=== PATIENT | male | born 1945 | race Caucasian/White ===

== ENCOUNTER 2016-11-08 09:29 | Outpatient (CLI) | payer MEDICARE, OTHER | END 2016-11-08 09:30 | disposition home or self-care (01) | DX: E78.2 Mixed hyperlipidemia (principal); C61 Malignant neoplasm of prostate; I10 Essential (primary) hypertension; D64.9 Anemia, unspecified ==

== ENCOUNTER 2017-10-29 12:58 | Outpatient (CLI) | payer MEDICARE, OTHER ==
--- NOTE | 2017-10-29 17:27 | MRI Report ---
EXAM: MRI LUMBAR SPINE WITHOUT CONTRAST EXAM DATE: 10/29/2017 01:54 PM. CLINICAL HISTORY: Low back pain with right-sided sciatica. COMPARISON: 5 views of the lumbosacral spine 03/16/2011. TECHNIQUE: Multiplanar, multisequence T1-weighted and fluid-sensitive sequences of the lumbar spine f rom T12 to S1 without contrast. Other: None. FINDINGS: There is a 22 degree dextroscoliosis of the lumbar spine with apex at L2. There is mild to moderate atrophy of the paraspinal musculature. The abdominal aorta is of normal caliber. There are multiple T2 hyperintense lesions of the right kidney only partially within the provided fie ld of view some of which appear to be exophytic. I cannot exclude the possibility of at least a mildl y complex right renal cyst. Further evaluation can be obtained with renal ultrasound as deemed clinic ally appropriate. There are multiple T2 hyperintense lesions of the interpolar region of the left kid hank and inferior pole some of which appear to be septated and therefore represent at least a mildly c omplex cyst. This can be further evaluated with ultrasound. The conus is low-lying. The tip of the conus is at L3-L4. However, there does not appear to be thicke renan of the filum terminale at the L5-S1 level to suggest a tethered cord. There is a spina bifida oc culta present at L4-L5 and L5-S1. There is T2 hyperintensity demonstrated within the central portion of the spinal cord at the L1-L2 le gracia measuring 16 mm in the long axis. This may reflect an area of myelomalacia. Recommend correlation with history and clinical symptoms. Postcontrast T1-weighted images may be useful and can be obtaine d as clinically appropriate. Neoplasia would overall be somewhat less likely. There is also a separate area of hyperintensity present within the spinal cord at the inferior endpla te level of L1. This latter area of hyperintensity may represent mild dilatation of the central canal . This is only partially within the provided field of view. The anterior to posterior dimension of the bony lumbar spinal canal is slightly less than 15 mm consi stent with a borderline congenital stenosis. There is a grade 1 anterolisthesis of L5 on S1. T11-T12: There is a small disk osteophyte complex abutting the sac producing at least a moderate degr ee of central canal stenosis. There also appears to be a T2 hyperintense structure within the proxima l left foraminal space which may reflect extension of the synovial cyst. There is a moderate to great er degree of left foraminal stenosis. Recommend correlation for left T11 radicular symptoms. There is severe narrowing of the right neural foramen. Recommend correlation for right T11 radiculopathy. T12-L1: There is a broad-based disk osteophyte complex abutting the sac. There is mild hypertrophy of the fat in the posterior epidural space consistent with an area of focal epidural lipomatosis. There is a moderate central canal stenosis. There is minimal narrowing of the neural foramina bilaterally. L1-L2: There is a small disk osteophyte complex with superimposed central extrusion of the disk abutt ing the sac producing moderate central canal stenosis. There is mild to moderate right and left facet arthropathy. There is mild right and moderate left foraminal stenosis. L2-L3: There is a broad-based disk osteophyte complex abutting the sac. There is hypertrophy of the f at in the posterior epidural space. There is a moderate central canal stenosis. There is mild left an d mild to moderate right facet arthropathy. There is moderate right and left foraminal stenosis. L3-L4: There is a broad-based disk osteophyte complex abutting the sac. There is hypertrophy of the f at in the posterior epidural space. There is a moderate central canal stenosis. There is severe right and moderate left foraminal stenosis. There is mild left and moderate right facet arthropathy. L4-L5: There is minimal left and mild right facet arthropathy. There is moderate narrowing of the rig ht neural foramen and left neural foramen. There is no significant central canal stenosis. L5-S1: There is a grade 1 anterolisthesis of L5 on S1 with associated disk osteophyte complex. There is severe right and moderate left facet arthropathy. There is a severe central canal stenosis. There is severe narrowing of the right neural foramen. There is severe narrowing of the left neural foramen . Recommend correlation for L5 radiculopathies. S1-S2: There is no significant disk bulge or central canal stenosis. IMPRESSION: 1. For the purposes of this report, T12 is designated as the last rib-bearing vertebral body. However , there is partial lumbarization of S1 with a rudimentary S1-S2 disk space. Therefore there is a bains sitional vertebral body present. The conus is low in position terminating at L3-L4. However, there do es not appear to be thickening of the filum at the level of L5-S1 to suggest tethering. 2. There are spina bifida occultas at the posterior elements at L4-L5 and L5-S1. 3. There is T2 hyperintensity demonstrated within the spinal cord at the L1-L2 level. The overall trenton earance is suspicious for an area of myelomalacia. Recommend correlation with clinical symptoms. Othe r etiologies which can produce a similar appearance would include a demyelinating plaque. An area of neoplasia would overall be somewhat less likely but not entirely excluded. Recommend correlation with clinical symptoms. There is a small disk osteophyte complex with superimposed central extrusion at L 1-L2 producing a moderate central canal stenosis. 4. 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 There are multilevel mild de grees of epidural lipomatosis contributing to the central canal stenoses. 5. There is subtle T2 hyperintensity demonstrated within the spinal cord at the mid L1 level which ma y reflect either focal dilatation of the central canal which would reflect a small area of hydromyeli a versus possibly an additional area of myomalacia. 6. There is a 22 degree dextroscoliosis of the lumbar spine with the apex at L2. 7. There is a small disk osteophyte at T11-T12 producing a moderate degree of central canal stenosis. There is also suggestion of a synovial cyst within the left foraminal space. There is a moderate to greater degree of left foraminal stenosis and severe narrowing of the right neural foramen. Recommend correlation for T11 radicular symptoms. 8. There is a moderate central canal stenosis at T12-L1 from a broad-based disk osteophyte complex in combination with epidural lipomatosis. 9. There is a small disk osteophyte complex at L1-L2 with superimposed central extrusion of the disk producing a moderate central canal stenosis. 10. There is a moderate central canal stenosis at L2-L3 from a broad-based disk osteophyte complex in combination with epidural lipomatosis. 11. There is a broad-based disk osteophyte complex at L3-L4 which in combination with epidural lipoma tosis produces a moderate central canal stenosis. 12. There is a severe central canal stenosis at L5-S1 secondary to combination of grade 1 anterolisth esis of L5 on S1, disk osteophyte and facet arthropathy. There is severe narrowing of the bilateral n eural foramina. Recommend correlation for L5 radiculopathies. 13. There are at least mildly complex appearing renal cystic structures in the bilateral kidneys. The se are only partially in the provided field of view. They can be further characterized with renal ult rasound. Comment: The following findings are so common in adults without low back pain that while we report th eir presence, they must be interpreted with caution and in the context of the clinical situation. (Re andriy Goodwin et al, Spine 2001) Prevalence of findings in patients without low back pain: Disk degeneration (any evidence): 92% Disk desiccation/T2 signal loss: 83% Disk height loss: 56% Disk bulge: 64% Disk protrusion: 32% Annular tear/high intensity zone: 38% [facility] Referring Provider Line: [phone] SITE ID: [id number]
== END 2017-10-29 12:59 | disposition home or self-care (01) ==
LOC: DI 12:58
PROVIDERS: ATTEND Internal Medicine
DX: Q05.7 Lumbar spina bifida without hydrocephalus (principal); M51.26 Other intervertebral disc displacement, lumbar region; M47.896 Other spondylosis, lumbar region; M47.897 Other spondylosis, lumbosacral region; M43.17 Spondylolisthesis, lumbosacral region; M41.86 Other forms of scoliosis, lumbar region; M25.78 Osteophyte, vertebrae; N28.9 Disorder of kidney and ureter, unspecified
CPT/HCPCS: 72148

== ENCOUNTER 2017-11-27 10:11 | Outpatient (CLI) | payer MEDICARE, OTHER ==
[2017-11-27 17:50] LABS: BASOPHILS % (AUTO) 0.2 %; EOSINOPHILS # (AUTO) 0.1 10^3/uL (0.0-0.7); EOSINOPHILS % (AUTO) 2.3 %; HGB - HEMOGLOBIN 14.1 g/dL (14.0-18.0); LYMPHOCYTES # (AUTO) 1.3 10^3/uL (1.5-3.5); LYMPHOCYTES % (AUTO) 21.1 %; MEAN CORPUSCULAR HEMOGLOBIN 26.1 pg (27.0-31.0); MEAN CORPUSCULAR HGB CONC 32.2 g/dL (32.0-36.0); MEAN CORPUSCULAR VOLUME 81.1 fL (80.0-94.0); MEAN PLATELET VOLUME 7.5 fL (7.4-11.4); MONOCYTES # (AUTO) 0.7 10^3/uL (0.0-1.0); MONOCYTES % (AUTO) 10.7 %; NEUTROPHILS # (AUTO) 4.2 10^3/uL (1.5-6.6); NEUTROPHILS % (AUTO) 65.7 %; PLT - PLATELET COUNT 206 10^3/uL (130-450); RED CELL DISTRIBUTION WIDTH 16.2 % (12.0-15.0); WHITE BLOOD COUNT 6.4 x10^3/uL (4.8-10.8)
[2017-11-27 17:59] LABS: ALBUMIN/GLOBULIN RATIO 1.5 (1.0-2.2); ALKALINE PHOSPHATASE 91 IU/L (42-121); ALT ALANINE AMINOTRANSFERASE 22 IU/L (10-60); AST ASPARTATE AMINOTRANSFERASE 21 IU/L (10-42); BUN - BLOOD UREA NITROGEN 14 mg/dL (6-20); CALCIUM 8.5 mg/dL (8.5-10.3); CARBON DIOXIDE - CO2 28 mmol/L (21-32); CHLORIDE 101 mmol/L (101-111); CHOL/HDL RATIO 3.5 (<5.0); CHOLESTEROL 117 mg/dL; CREATININE 0.9 mg/dL (0.6-1.2); GFR - MDRD 82 (>89); GLUCOSE 106 mg/dL (70-100); HDL CHOLESTEROL 33 mg/dL; LDL CHOLESTEROL,CALCULATED 66 mg/dL; SODIUM 138 mmol/L (135-145); TOTAL PROTEIN 6.6 g/dL (6.7-8.2); VLDL CHOLESTEROL 18 mg/dL
[2017-11-27 20:06] LABS: HB2 TOTAL 15.8 g/dL; HEMOGLOBIN A1C 0.68 g/dL; HEMOGLOBIN A1C % 6.1 % (4.6-6.2)
== END 2017-11-27 10:12 | disposition home or self-care (01) ==
LOC: LAB.F 10:11
PROVIDERS: ATTEND Internal Medicine
DX: E11.9 Type 2 diabetes mellitus without complications (principal); C61 Malignant neoplasm of prostate; D50.8 Other iron deficiency anemias; I10 Essential (primary) hypertension; E78.5 Hyperlipidemia, unspecified; Z79.899 Other long term (current) drug therapy
CPT/HCPCS: 36415; 80053; 80061; 83036; 83721; 84153; 84443; 85025

== ENCOUNTER 2017-12-02 11:46 | Day surgery (SDC) | payer MEDICARE, OTHER ==
[2017-12-02] MEDS ORDERED: LACTATED RINGERS 1,000 ML IV ONE ×2 (12:20→12:40)
[2017-12-02] MEDS ORDERED: MIDAZOLAM 2 MG/2 ML VIAL IVP ONE (12:40)
[2017-12-02] MEDS ORDERED: fentaNYL 100 MCG/2 ML VIAL IVP ONE (12:40)
[2017-12-02 14:21] VITALS: BP 151/94
== END 2017-12-02 11:47 | disposition home or self-care (01) ==
LOC: SDS 11:46
PROVIDERS: ATTEND Surgery
PROC: 0DJD8ZZ Inspection of Lower Intestinal Tract, Via Natural or Artificial Opening Endoscopic (ICD-10-PCS; principal; 2017-12-02 12:49)
DX: K62.5 Hemorrhage of anus and rectum (principal); K64.4 Residual hemorrhoidal skin tags; K64.8 Other hemorrhoids; K57.30 Diverticulosis of large intestine without perforation or abscess without bleeding; Q27.33 Arteriovenous malformation of digestive system vessel; Z79.82 Long term (current) use of aspirin; F17.210 Nicotine dependence, cigarettes, uncomplicated
CPT/HCPCS: 45378; J7120

== ENCOUNTER 2018-07-25 09:20 | Outpatient (CLI) | payer MEDICARE, OTHER | END 2018-07-25 09:21 | disposition home or self-care (01) | LOC: LAB.F 09:20 | PROVIDERS: ATTEND Internal Medicine | DX: C61 Malignant neoplasm of prostate (principal) | CPT/HCPCS: 36415; 84153 ==

== ENCOUNTER 2019-01-12 09:35 | Outpatient (CLI) | payer MEDICARE, OTHER ==
[2019-01-12 17:05] LABS: BASOPHILS # (AUTO) 0.1 10^3/uL (0.0-0.1); BASOPHILS % (AUTO) 0.8 %; EOSINOPHILS # (AUTO) 0.1 10^3/uL (0.0-0.7); HGB - HEMOGLOBIN 13.3 g/dL (14.0-18.0); LYMPHOCYTES # (AUTO) 1.4 10^3/uL (1.5-3.5); LYMPHOCYTES % (AUTO) 22.4 %; MEAN CORPUSCULAR VOLUME 80.8 fL (80.0-94.0); MEAN PLATELET VOLUME 8.9 fL (7.4-11.4); MONOCYTES # (AUTO) 0.7 10^3/uL (0.0-1.0); MONOCYTES % (AUTO) 10.9 %; NEUTROPHILS # (AUTO) 3.9 10^3/uL (1.5-6.6); NEUTROPHILS % (AUTO) 63.6 %; PLT - PLATELET COUNT 213 10^3/uL (130-450); RED BLOOD COUNT 5.31 10^6/uL (4.70-6.10); WHITE BLOOD COUNT 6.2 x10^3/uL (4.8-10.8)
[2019-01-12 17:23] LABS: ALBUMIN 3.9 g/dL (3.2-5.5); ALBUMIN/GLOBULIN RATIO 1.3 (1.0-2.2); ALKALINE PHOSPHATASE 89 IU/L (42-121); ALT ALANINE AMINOTRANSFERASE 16 IU/L (10-60); AST ASPARTATE AMINOTRANSFERASE 15 IU/L (10-42); BILIRUBIN,TOTAL 0.8 mg/dL (0.2-1.0); BUN - BLOOD UREA NITROGEN 21 mg/dL (6-20); CALCIUM 8.5 mg/dL (8.5-10.3); CARBON DIOXIDE - CO2 26 mmol/L (21-32); CHLORIDE 103 mmol/L (101-111); CHOLESTEROL 121 mg/dL; CREATININE 0.7 mg/dL (0.6-1.2); GFR - MDRD 110 (>89); GLUCOSE 104 mg/dL (70-100); HDL CHOLESTEROL 41 mg/dL; LDL CHOLESTEROL,CALCULATED 67 mg/dL; LDL/HDL RATIO 1.6 (<3.6); SODIUM 140 mmol/L (135-145); VLDL CHOLESTEROL 13 mg/dL
== END 2019-01-12 09:36 | disposition home or self-care (01) ==
LOC: LAB.F 09:35
PROVIDERS: ATTEND Registered Nurse
DX: E78.5 Hyperlipidemia, unspecified (principal); D50.8 Other iron deficiency anemias; I10 Essential (primary) hypertension; C61 Malignant neoplasm of prostate
CPT/HCPCS: 36415; 80053; 80061; 83036; 83721; 84443; 85025

== ENCOUNTER 2020-04-04 09:58 | Outpatient (CLI) | payer MEDICARE, OTHER ==
[2020-04-04 14:44] LABS: BASOPHILS # (AUTO) 0.1 10^3/uL (0.0-0.1); BASOPHILS % (AUTO) 0.8 %; EOSINOPHILS # (AUTO) 0.1 10^3/uL (0.0-0.7); HGB - HEMOGLOBIN 12.7 g/dL (14.0-18.0); LYMPHOCYTES # (AUTO) 1.3 10^3/uL (1.5-3.5); LYMPHOCYTES % (AUTO) 20.9 %; MEAN CORPUSCULAR HEMOGLOBIN 22.8 pg (27.0-31.0); MEAN CORPUSCULAR HGB CONC 30.1 g/dL (32.0-36.0); MEAN CORPUSCULAR VOLUME 75.8 fL (80.0-94.0); MONOCYTES # (AUTO) 0.6 10^3/uL (0.0-1.0); MONOCYTES % (AUTO) 9.7 %; NEUTROPHILS # (AUTO) 4.3 10^3/uL (1.5-6.6); NEUTROPHILS % (AUTO) 66.3 %; PLT - PLATELET COUNT 258 10^3/uL (130-450); RED BLOOD COUNT 5.57 10^6/uL (4.70-6.10); RED CELL DISTRIBUTION WIDTH 16.7 % (12.0-15.0); WHITE BLOOD COUNT 6.4 x10^3/uL (4.8-10.8)
[2020-04-04 15:33] LABS: ALBUMIN/GLOBULIN RATIO 1.4 (1.0-2.2); ALKALINE PHOSPHATASE 100 IU/L (42-121); ALT ALANINE AMINOTRANSFERASE 16 IU/L (10-60); AST ASPARTATE AMINOTRANSFERASE 16 IU/L (10-42); BILIRUBIN,TOTAL 0.9 mg/dL (0.2-1.0); BUN - BLOOD UREA NITROGEN 17 mg/dL (6-20); CALCIUM 8.5 mg/dL (8.5-10.3); CARBON DIOXIDE - CO2 26 mmol/L (21-32); CHLORIDE 103 mmol/L (101-111); CHOLESTEROL 113 mg/dL; CREATININE 0.8 mg/dL (0.6-1.2); GLUCOSE 102 mg/dL (70-100); HDL CHOLESTEROL 38 mg/dL; LDL CHOLESTEROL,CALCULATED 60 mg/dL; LDL/HDL RATIO 1.6 (<3.6); SODIUM 137 mmol/L (135-145); TOTAL PROTEIN 6.8 g/dL (6.7-8.2); VLDL CHOLESTEROL 15 mg/dL
[2020-04-04 20:37] LABS: HEMOGLOBIN A1c% 6.6 % (4.27-6.07)
== END 2020-04-04 09:59 | disposition home or self-care (01) ==
LOC: LAB.S 09:58
PROVIDERS: ATTEND Physician Assistant
DX: I10 Essential (primary) hypertension (principal); E11.9 Type 2 diabetes mellitus without complications; E78.5 Hyperlipidemia, unspecified; E66.3 Overweight; C61 Malignant neoplasm of prostate
CPT/HCPCS: 36415; 80053; 80061; 83036; 83721; 84153; 84443; 85025

== ENCOUNTER 2020-11-25 10:54 | Outpatient (CLI) | payer MEDICARE, OTHER ==
[2020-11-25 15:26] LABS: CREATININE,URINE 52.6 mg/dL; MICROALBUM/CREATININE RATIO,UR 7.6 ug/mg (<30.0); MICROALBUMIN,URINE 0.4 mg/dL (0-300.0)
[2020-11-25 16:08] LABS: CALCIUM 8.7 mg/dL (8.5-10.3); CREATININE 0.8 mg/dL (0.6-1.2); POTASSIUM 3.9 mmol/L (3.5-5.0)
[2020-11-25 20:26] LABS: ESTIMATED AVERAGE GLUCOSE 140 mg/dL (70-100); HEMOGLOBIN A1c% 6.5 % (4.27-6.07)
== END 2020-11-25 10:55 | disposition home or self-care (01) ==
LOC: LAB.S 10:54
PROVIDERS: ATTEND Physician Assistant
DX: E66.9 Obesity, unspecified (principal); E78.5 Hyperlipidemia, unspecified; F17.210 Nicotine dependence, cigarettes, uncomplicated; E11.9 Type 2 diabetes mellitus without complications; I10 Essential (primary) hypertension
CPT/HCPCS: 36415; 80048; 82043; 82570; 83036

== ENCOUNTER 2021-10-03 09:44 | Outpatient (CLI) | payer MEDICARE, OTHER ==
[2021-10-03 14:53] LABS: BASOPHILS # (AUTO) 0.1 10^3/uL (0.0-0.1); BASOPHILS % (AUTO) 0.7 %; EOSINOPHILS # (AUTO) 0.1 10^3/uL (0.0-0.7); EOSINOPHILS % (AUTO) 1.8 %; HCT - HEMATOCRIT 37.5 % (42.0-52.0); HGB - HEMOGLOBIN 10.5 g/dL (14.0-18.0); LYMPHOCYTES # (AUTO) 1.4 10^3/uL (1.5-3.5); LYMPHOCYTES % (AUTO) 19.5 %; MEAN CORPUSCULAR HEMOGLOBIN 19.1 pg (27.0-31.0); MEAN CORPUSCULAR VOLUME 68.3 fL (80.0-94.0); MEAN PLATELET VOLUME 9.3 fL (7.4-11.4); MONOCYTES # (AUTO) 0.8 10^3/uL (0.0-1.0); NEUTROPHILS # (AUTO) 4.8 10^3/uL (1.5-6.6); NEUTROPHILS % (AUTO) 66.7 %; PLT - PLATELET COUNT 295 10^3/uL (130-450); RED BLOOD COUNT 5.49 10^6/uL (4.70-6.10); RED CELL DISTRIBUTION WIDTH 18.4 % (12.0-15.0); WHITE BLOOD COUNT 7.2 x10^3/uL (4.8-10.8)
[2021-10-03 15:24] LABS: ALBUMIN/GLOBULIN RATIO 1.4 (1.0-2.2); ALKALINE PHOSPHATASE 95 IU/L (42-121); ALT ALANINE AMINOTRANSFERASE 21 IU/L (10-60); AST ASPARTATE AMINOTRANSFERASE 22 IU/L (10-42); BILIRUBIN,TOTAL 0.6 mg/dL (0.2-1.0); BUN - BLOOD UREA NITROGEN 19 mg/dL (6-20); CALCIUM 8.7 mg/dL (8.5-10.3); CARBON DIOXIDE - CO2 27 mmol/L (21-32); CHLORIDE 101 mmol/L (101-111); CHOL/HDL RATIO 3.4 (<5.0); CHOLESTEROL 124 mg/dL; CREATININE 0.9 mg/dL (0.6-1.2); GFR - MDRD 82 (>89); GLUCOSE 104 mg/dL (70-100); HDL CHOLESTEROL 36 mg/dL; LDL CHOLESTEROL,CALCULATED 69 mg/dL; LDL/HDL RATIO 1.9 (<3.6); POTASSIUM 3.4 mmol/L (3.5-5.0); SODIUM 139 mmol/L (135-145); TOTAL PROTEIN 6.8 g/dL (6.7-8.2); TRIGLYCERIDES 97 mg/dL; VLDL CHOLESTEROL 19 mg/dL
[2021-10-03 19:38] LABS: PLATELET ESTIMATE, MANUAL NORMAL (130-450,000) (NORMAL); PLATELET MORPHOLOGY NORMAL APPEARANCE (NORMAL); SLIDE REVIEW? Indicated
[2021-10-03 19:39] LABS: WBC MORPHOLOGY (MULTIPLE) NORMAL APPEARANCE (NORMAL)
[2021-10-03 20:26] LABS: ESTIMATED AVERAGE GLUCOSE 146 mg/dL (70-100); HEMOGLOBIN A1c% 6.7 % (4.27-6.07)
== END 2021-10-03 09:45 | disposition home or self-care (01) ==
LOC: LAB.S 09:44
PROVIDERS: ATTEND Registered Nurse
DX: I10 Essential (primary) hypertension (principal); E78.5 Hyperlipidemia, unspecified; E11.9 Type 2 diabetes mellitus without complications; Z12.5 Encounter for screening for malignant neoplasm of prostate
CPT/HCPCS: 36415; 80053; 80061; 83036; 85025; G0103; 83721; 84153

== ENCOUNTER 2021-10-05 11:54 | Outpatient (CLI) | payer MEDICARE, OTHER ==
[2021-10-05 15:13] LABS: % IRON SATURATION 5 % (20-50); IRON 26 ug/dL (45-182); TOTAL IRON BINDING CAPACITY 484 ug/dL (250-450); TRANSFERRIN 346 mg/dL (180-329)
[2021-10-05 15:21] LABS: ABSOLUTE RETICS # AUTO 0.047 10^6/uL (0.020-0.110); BASOPHILS # (AUTO) 0.1 10^3/uL (0.0-0.1); EOSINOPHILS # (AUTO) 0.1 10^3/uL (0.0-0.7); EOSINOPHILS % (AUTO) 1.6 %; HGB - HEMOGLOBIN 10.2 g/dL (14.0-18.0); LYMPHOCYTES # (AUTO) 1.4 10^3/uL (1.5-3.5); LYMPHOCYTES % (AUTO) 21.5 %; MEAN CORPUSCULAR HEMOGLOBIN 19.4 pg (27.0-31.0); MEAN CORPUSCULAR HGB CONC 28.3 g/dL (32.0-36.0); MEAN CORPUSCULAR VOLUME 68.6 fL (80.0-94.0); MEAN PLATELET VOLUME 9.3 fL (7.4-11.4); MONOCYTES # (AUTO) 0.8 10^3/uL (0.0-1.0); MONOCYTES % (AUTO) 12.1 %; NEUTROPHILS % (AUTO) 63.6 %; PLT - PLATELET COUNT 277 10^3/uL (130-450); RED BLOOD COUNT 5.25 10^6/uL (4.70-6.10); RED CELL DISTRIBUTION WIDTH 18.6 % (12.0-15.0); RETICULOCYTE COUNT % (AUTO) 0.89 % (0.5-2.3); WHITE BLOOD COUNT 6.3 x10^3/uL (4.8-10.8)
[2021-10-05 15:25] LABS: FERRITIN 6.3 ng/mL (23.9-336.2)
[2021-10-05 15:28] LABS: FOLATE 6.44 ng/mL (5.90 - >24.8)
[2021-10-05 15:41] LABS: SLIDE REVIEW? Indicated
[2021-10-05 18:00] LABS: PLATELET ESTIMATE, MANUAL NORMAL (130-450,000) (NORMAL); PLATELET MORPHOLOGY NORMAL APPEARANCE (NORMAL)
== END 2021-10-05 11:55 | disposition home or self-care (01) ==
LOC: LAB.S 11:54
PROVIDERS: ATTEND Registered Nurse
DX: D64.9 Anemia, unspecified (principal)
CPT/HCPCS: 36415; 81599; 82607; 82728; 82746; 83020; 83540; 84466; 85014; 85018; 85025; 85041; 85045

== ENCOUNTER 2022-10-09 10:11 | Outpatient (CLI) | payer MEDICARE, OTHER ==
[2022-10-09 14:19] LABS: BASOPHILS # (AUTO) 0.1 10^3/uL (0.0-0.1); BASOPHILS % (AUTO) 0.9 %; EOSINOPHILS # (AUTO) 0.1 10^3/uL (0.0-0.7); EOSINOPHILS % (AUTO) 1.2 %; HCT - HEMATOCRIT 34.6 % (42.0-52.0); HGB - HEMOGLOBIN 8.8 g/dL (14.0-18.0); LYMPHOCYTES # (AUTO) 1.5 10^3/uL (1.5-3.5); MEAN CORPUSCULAR HEMOGLOBIN 16.9 pg (27.0-31.0); MEAN CORPUSCULAR HGB CONC 25.4 g/dL (32.0-36.0); MEAN CORPUSCULAR VOLUME 66.5 fL (80.0-94.0); MEAN PLATELET VOLUME 9.1 fL (7.4-11.4); MONOCYTES # (AUTO) 0.9 10^3/uL (0.0-1.0); MONOCYTES % (AUTO) 10.6 %; NEUTROPHILS # (AUTO) 5.6 10^3/uL (1.5-6.6); NEUTROPHILS % (AUTO) 69.1 %; PLT - PLATELET COUNT 301 10^3/uL (130-450); RED CELL DISTRIBUTION WIDTH 21.8 % (12.0-15.0); WHITE BLOOD COUNT 8.1 x10^3/uL (4.8-10.8)
[2022-10-09 14:36] LABS: SLIDE REVIEW? Indicated
[2022-10-09 15:04] LABS: THYROID STIMULATING HORMONE 1.52 uIU/mL (0.34-5.60)
[2022-10-09 15:18] LABS: PLATELET ESTIMATE, MANUAL NORMAL (130-450,000) (NORMAL); PLATELET MORPHOLOGY NORMAL APPEARANCE (NORMAL)
[2022-10-09 15:43] LABS: ALBUMIN 3.9 g/dL (3.2-5.5); ALBUMIN/GLOBULIN RATIO 1.3 (1.0-2.2); ALKALINE PHOSPHATASE 98 IU/L (42-121); ALT ALANINE AMINOTRANSFERASE 20 IU/L (10-60); AST ASPARTATE AMINOTRANSFERASE 19 IU/L (10-42); BILIRUBIN,TOTAL 0.5 mg/dL (0.2-1.0); BUN - BLOOD UREA NITROGEN 19 mg/dL (6-20); CALCIUM 8.3 mg/dL (8.5-10.3); CARBON DIOXIDE - CO2 25 mmol/L (21-32); CHLORIDE 104 mmol/L (101-111); CHOL/HDL RATIO 2.8 (<5.0); CHOLESTEROL 102 mg/dL; CREATININE 0.8 mg/dL (0.6-1.2); GFR - MDRD 93 (>89); GLUCOSE 116 mg/dL (70-100); HDL CHOLESTEROL 37 mg/dL; LDL CHOLESTEROL,CALCULATED 53 mg/dL; LDL/HDL RATIO 1.4 (<3.6); POTASSIUM 3.5 mmol/L (3.5-5.0); SODIUM 137 mmol/L (135-145); TOTAL PROTEIN 6.9 g/dL (6.7-8.2); TRIGLYCERIDES 60 mg/dL; VLDL CHOLESTEROL 12 mg/dL
[2022-10-10 10:34] LABS: ESTIMATED AVERAGE GLUCOSE 137 mg/dL (70-100); HEMOGLOBIN A1c% 6.4 % (4.27-6.07)
== END 2022-10-09 10:12 | disposition home or self-care (01) ==
LOC: LAB.S 10:11
PROVIDERS: ATTEND Registered Nurse
DX: I10 Essential (primary) hypertension (principal); D64.9 Anemia, unspecified; E78.5 Hyperlipidemia, unspecified; E11.9 Type 2 diabetes mellitus without complications; Z12.5 Encounter for screening for malignant neoplasm of prostate
CPT/HCPCS: 36415; 80053; 80061; 83036; 84443; 85025; G0103; 83721; 84153

== ENCOUNTER 2022-10-15 13:34 | Outpatient (CLI) | payer MEDICARE, OTHER ==
[2022-10-15 20:58] LABS: FERRITIN 3.6 ng/mL (23.9-336.2)
[2022-10-15 21:01] LABS: FOLATE 6.82 ng/mL (5.90 - >24.8)
== END 2022-10-15 13:35 | disposition home or self-care (01) ==
LOC: LAB.S 13:34
PROVIDERS: ATTEND Registered Nurse
DX: D64.9 Anemia, unspecified (principal); E83.51 Hypocalcemia; E66.3 Overweight
CPT/HCPCS: 36415; 82607; 82652; 82728; 82746

== ENCOUNTER 2023-03-12 14:01 | Outpatient (CLI) | payer MEDICARE, OTHER ==
[2023-03-12 19:40] LABS: HCT - HEMATOCRIT 38.9 % (42.0-52.0); HGB - HEMOGLOBIN 11.1 g/dL (14.0-18.0); MEAN CORPUSCULAR HEMOGLOBIN 21.8 pg (27.0-31.0); MEAN CORPUSCULAR HGB CONC 28.5 g/dL (32.0-36.0); MEAN CORPUSCULAR VOLUME 76.3 fL (80.0-94.0); MEAN PLATELET VOLUME 9.4 fL (7.4-11.4); RED BLOOD COUNT 5.1 10^6/uL (4.70-6.10); RED CELL DISTRIBUTION WIDTH 21.8 % (12.0-15.0)
== END 2023-03-12 14:02 | disposition home or self-care (01) ==
LOC: LAB.S 14:01
PROVIDERS: ATTEND Registered Nurse
DX: D53.9 Nutritional anemia, unspecified (principal)
CPT/HCPCS: 36415; 82728; 85027

== ENCOUNTER 2023-11-11 08:52 | Day surgery (SDC) | payer MEDICARE, OTHER ==
[2023-11-11] MEDS: LACTATED RINGERS 1,000 ML IV ONE ×2 (09:13→10:31)
--- NOTE | 2023-11-11 09:36 | ANESTHESIA ---
Pre-Anesthesia VS, & Labs - Diagnosis screening, anemia - Procedure colonoscopy Height: 5 ft 7 in Weight (kg): 108.8 kg Body Mass Index: 37.5 BMI Classification: Obese - NPO >8 hours Last Fluid Intake: am prep - Lab Results Lab results reviewed: Yes Home Medications and Allergies Home Medications: Ambulatory Orders Ferrous Sulfate [Feosol] 1 tab PO DAILY 11/08/23 Multivit-Min/Iron/Folic/Lutein [Multivitamin Women 50 Plus Tab] 1 each PO DAILY 11/08/23 Atorvastatin [Lipitor] 20 mg PO DAILY 11/29/17 Cholecalciferol (Vitamin D3) [Vitamin D3] 1,000 mg PO DAILY 11/29/17 Losartan/Hydrochlorothiazide [Hyzaar 100-25 Tablet] 1 each PO DAILY 10/27/21 Metoprolol Tartrate [Lopressor] 50 mg PO BID 10/27/21 metFORMIN [Glucophage] 500 mg PO DAILY 10/27/21 Ferrous Sulfate [Feosol] 1 tab PO DAILY 11/08/23 Multivit-Min/Iron/Folic/Lutein [Multivitamin Women 50 Plus Tab] 1 each PO DAILY 11/08/23 Allergies/Adverse Reactions: Allergies Allergy/AdvReac Type Severity Reaction Status Date / Time No Known Drug Allergies Allergy Verified 10/27/21 13:15 Anes History & Medical History - Medical History Cardiovascular: reports: Hypertension, High cholesterol Gastrointestinal: reports: GERD, Colon polyps, Hemorrhoids Endocrine/Autoimmune: reports: Type 2 diabetes - Surgical History Urologic: reports: Prostatic surgery, Penile implant Exam General: Alert, Oriented x3, Cooperative Dental: Partials Lower, Other Mouth Openin Fingerbreadth Neck Mobility: Normal Mallampati classification: II Thyromental Distance: 4-6 cm Respiratory: Decreased breath sounds Cardiovascular: Regular rate (occ pac on tele) Neurological: Normal speech Mental/Cognitive Status: Alert/Oriented X3, Normal for patient Cognitive Status: Within normal limits Plan Anesthesia Type: General Consent for Procedure(s) Verified and Reviewed: Yes Code Status: Attempt Resuscitation ASA classification: 3-Severe systemic disease Is this case an emergency?: No
[2023-11-11] MEDS ORDERED: PROPOFOL 500 MG/50 ML 500 MG/50 ML VIAL ONE (09:58)
--- NOTE | 2023-11-11 10:59 | ANESTHESIA POST OP EVALUATION ---
Anesthesia Post Eval - Post Anesthesia Eval Vitals: Last Vital Signs Temp 36.4 C L 11/11/23 10:55 Pulse 84 11/11/23 10:55 Resp 21 11/11/23 10:55 BP 98/76 11/11/23 10:55 Pulse Ox 95 11/11/23 10:55 O2 Flow Rate CV Function Including HR & BP: Stable Pain Control: Satisfactory Nausea & Vomiting: Negative Mental Status: Baseline Respiratory Status: Airway Patent Hydration Status: Satisfactory Anesthesia Complications: None
[2023-11-11 11:20] VITALS: BP 123/74; O2SAT 93
== END 2023-11-11 08:53 | disposition home or self-care (01) ==
LOC: SDS 08:52
PROVIDERS: ATTEND Surgery
DX: K92.1 Melena (principal); K64.3 Fourth degree hemorrhoids; I10 Essential (primary) hypertension; E78.5 Hyperlipidemia, unspecified; E11.9 Type 2 diabetes mellitus without complications; Z79.84 Long term (current) use of oral hypoglycemic drugs; E66.01 Morbid (severe) obesity due to excess calories; Z68.37 Body mass index [BMI] 37.0-37.9, adult; F17.210 Nicotine dependence, cigarettes, uncomplicated
CPT/HCPCS: 45378; J7120

== ENCOUNTER 2023-12-03 08:58 | Outpatient (CLI) | payer MEDICARE, OTHER ==
[2023-12-03 15:58] LABS: THYROID STIMULATING HORMONE 1.64 uIU/mL (0.34-5.60)
[2023-12-03 16:38] LABS: ALBUMIN 4.1 g/dL (3.2-5.5); ALBUMIN/GLOBULIN RATIO 1.6 (1.0-2.2); ALKALINE PHOSPHATASE 104 IU/L (42-121); ALT ALANINE AMINOTRANSFERASE 27 IU/L (10-60); AST ASPARTATE AMINOTRANSFERASE 22 IU/L (10-42); BILIRUBIN,TOTAL 0.7 mg/dL (0.2-1.0); BUN - BLOOD UREA NITROGEN 14 mg/dL (6-20); CALCIUM 9.4 mg/dL (8.5-10.3); CARBON DIOXIDE - CO2 28 mmol/L (21-32); CHLORIDE 99 mmol/L (101-111); CHOL/HDL RATIO 2.6 (<5.0); CHOLESTEROL 105 mg/dL; CREATININE 0.8 mg/dL (0.6-1.3); GFR - MDRD 93 (>89); GLUCOSE 120 mg/dL (74-104); HDL CHOLESTEROL 40 mg/dL; LDL CHOLESTEROL,CALCULATED 52 mg/dL; LDL/HDL RATIO 1.3 (<3.6); POTASSIUM 3.8 mmol/L (3.5-4.5); SODIUM 135 mmol/L (135-145); TOTAL PROTEIN 6.6 g/dL (6.4-8.9); TRIGLYCERIDES 67 mg/dL (48-352); VLDL CHOLESTEROL 13 mg/dL
[2023-12-03 16:47] LABS: CREATININE,URINE 153.9 mg/dL; MICROALBUM/CREATININE RATIO,UR 38.3 ug/mg (<30.0); MICROALBUMIN,URINE 5.9 mg/dL
== END 2023-12-03 08:59 | disposition home or self-care (01) ==
LOC: LAB.S 08:58
PROVIDERS: ATTEND Registered Nurse
DX: C61 Malignant neoplasm of prostate (principal); E11.9 Type 2 diabetes mellitus without complications; Z13.220 Encounter for screening for lipoid disorders; Z13.29 Encounter for screening for other suspected endocrine disorder; Z13.0 Encounter for screening for diseases of the blood and blood-forming organs and certain disorders involving the immune mechanism; Z13.228 Encounter for screening for other metabolic disorders
CPT/HCPCS: 36415; 80053; 80061; 82043; 82570; 83036; 83721; 84153; 84443; 85025

== ENCOUNTER 2023-12-05 07:54 | Outpatient (CLI) | payer MEDICARE, OTHER ==
[2023-12-05 14:57] LABS: BASOPHILS # (AUTO) 0.1 10^3/uL (0.0-0.1); BASOPHILS % (AUTO) 0.6 %; EOSINOPHILS # (AUTO) 0.1 10^3/uL (0.0-0.7); EOSINOPHILS % (AUTO) 1.4 %; HCT - HEMATOCRIT 47.7 % (42.0-52.0); HGB - HEMOGLOBIN 15.3 g/dL (14.0-18.0); LYMPHOCYTES # (AUTO) 1.2 10^3/uL (1.5-3.5); LYMPHOCYTES % (AUTO) 15.7 %; MEAN CORPUSCULAR HEMOGLOBIN 27.6 pg (27.0-31.0); MEAN CORPUSCULAR HGB CONC 32.1 g/dL (32.0-36.0); MEAN CORPUSCULAR VOLUME 86.1 fL (80.0-94.0); MEAN PLATELET VOLUME 9.2 fL (7.4-11.4); MONOCYTES # (AUTO) 0.9 10^3/uL (0.0-1.0); MONOCYTES % (AUTO) 11.5 %; NEUTROPHILS # (AUTO) 5.5 10^3/uL (1.5-6.6); NEUTROPHILS % (AUTO) 70.4 %; PLT - PLATELET COUNT 211 10^3/uL (130-450); RED BLOOD COUNT 5.54 10^6/uL (4.70-6.10); RED CELL DISTRIBUTION WIDTH 14.5 % (12.0-15.0); WHITE BLOOD COUNT 7.8 x10^3/uL (4.8-10.8)
[2023-12-05 20:06] LABS: ESTIMATED AVERAGE GLUCOSE 131 mg/dL (70-100); HEMOGLOBIN A1c% 6.2 % (4.27-6.07)
== END 2023-12-05 07:55 | disposition home or self-care (01) ==
LOC: LAB.S 07:54
PROVIDERS: ATTEND Registered Nurse
DX: E11.9 Type 2 diabetes mellitus without complications (principal); Z79.899 Other long term (current) drug therapy
CPT/HCPCS: 36415; 83036; 85025

== ENCOUNTER 2024-01-01 08:00 | Outpatient (CLI) | payer MEDICARE, OTHER ==
[2024-01-02 12:08] LABS: BILIRUBIN,URINE NEGATIVE (NEGATIVE); GLUCOSE, URINE (UA) NEGATIVE (NEGATIVE); KETONES,URINE (UA) NEGATIVE (NEGATIVE); LEUKOCYTE ESTERASE, URINE NEGATIVE (NEGATIVE); NITRITE,URINE NEGATIVE (NEGATIVE); OCCULT BLOOD,URINE NEGATIVE (NEGATIVE); PH,URINE 7.5 PH (5.0-7.5); PROTEIN,URINE NEGATIVE (NEGATIVE); UROBILINOGEN,URINE 1 (NORMAL) E.U./dL (NORMAL)
[2024-01-02 12:16] LABS: CLARITY,URINE CLEAR (CLEAR)
[2024-01-02 12:26] LABS: BACTERIA,URINE None Seen /HPF (None Seen); RBC,URINE 0-5 /HPF (0-5); SQUAMOUS EPITHELIAL CELL,UR NONE SEEN (<= Few); WBC,URINE 0-3 /HPF (0-3)
== END 2024-01-01 08:01 | disposition home or self-care (01) ==
LOC: LAB 08:00
PROVIDERS: ATTEND Urology
DX: R31.21 Asymptomatic microscopic hematuria (principal)
CPT/HCPCS: 81001; 87086

== ENCOUNTER 2024-02-17 13:01 | Outpatient (CLI) | payer MEDICARE, OTHER ==
--- NOTE | 2024-02-21 16:43 | CT Report ---
PROCEDURE: Chest WO INDICATIONS: LUNG NODULE TECHNIQUE: A CT scan of the chest was performed. Intravenous contrast media was not administered. Images were re corded and evaluated at appropriate window settings. Reformats: axial MIP of the chest, coronal and s agittal. For radiation dose reduction, the following was used: automated exposure control, adjustment of mA and/or kV according to patient size. COMPARISON: None. Please note were made to obtain prior imaging which were unsuccessful.. FINDINGS: Image quality: Diagnostic. Chest wall and lower neck: No thyroid nodule which requires sonographic follow up. No axillary or sup raclavicular adenopathy by size. Eventration of the right hemidiaphragm. Lungs and pleura: No pleural effusions. No pneumothorax. Left lower lobe solid, noncalcified pulmona ry nodule measuring 2.5 x 2 cm (12/245). Bilateral lower lobe atelectasis. Patent central airways. Ri ght upper lobe solid, noncalcified pulmonary nodule measuring 2 mm (12/82). Additional right upper lo be solid, noncalcified pulmonary nodule measuring 2 mm (12/185). Left fissure solid pulmonary nodule versus lymph node measuring 3 mm (/1). Mediastinum: Heart size is mildly enlarged. No pericardial effusion. Ascending thoracic aorta is ecta tic measuring approximately 4.4 x 4.3 cm (2/50). Mild calcification of the thoracic aorta.. No medias tinal adenopathy by size criteria. Mild LAD coronary vessel calcification Bones: No aggressive osseous abnormality. Diffuse osseous demineralization. Marked multilevel degener ative changes of the spine. No definite fracture. Upper Abdomen: Left hepatic lobe simple cyst measuring (85). Partially visualized cyst in the right interpolar region kidney measuring 6.1 cm (109). Masslike appearance in the left renal interpolar re gion (2/109). IMPRESSION: 1.Left lower lobe solid, noncalcified pulmonary nodule measuring 2.5 x 2 cm which is indeterminate. R ecommend comparison with prior imaging if available. Otherwise, recommend a PET/CT for further evalua tion. 2.A few additional scattered solid, noncalcified pulmonary nodules measuring up to 3 mm which are ind eterminate. 3.Ascending thoracic aorta is ectatic measuring 4.4 x 4.3 cm. 4.Masslike appearance in the left renal interpolar region which may reflect volume averaging. Recomme nd a nonemergent renal ultrasound for further evaluation. Reviewed by: Manuel Anand MD on 02/21/2024 4:41 PM PDT Approved by: Manuel Anand MD on 02/21/2024 4:41 PM PDT Station ID: [id number]
== END 2024-02-17 13:02 | disposition home or self-care (01) ==
LOC: DI 13:01
PROVIDERS: ATTEND Registered Nurse
DX: R91.8 Other nonspecific abnormal finding of lung field (principal); I77.810 Thoracic aortic ectasia; R93.422 Abnormal radiologic findings on diagnostic imaging of left kidney

== ENCOUNTER 2024-03-09 08:15 | Outpatient (CLI) | payer MEDICARE, OTHER ==
[2024-03-09 16:34] LABS: CALCIUM 8.9 mg/dL (8.5-10.3); CREATININE 0.7 mg/dL (0.6-1.3); POTASSIUM 3.5 mmol/L (3.5-4.5)
[2024-03-09 18:25] LABS: ESTIMATED AVERAGE GLUCOSE 128 mg/dL (70-100); HEMOGLOBIN A1c% 6.1 % (4.27-6.07)
== END 2024-03-09 08:16 | disposition home or self-care (01) ==
LOC: LAB.S 08:15
PROVIDERS: ATTEND Registered Nurse
DX: E11.9 Type 2 diabetes mellitus without complications (principal)
CPT/HCPCS: 36415; 80048; 83036

== ENCOUNTER 2024-03-14 12:39 | Outpatient (CLI) | payer MEDICARE, OTHER ==
--- NOTE | 2024-03-17 00:19 | Ultrasound Report ---
PROCEDURE: Renal (Retroperitoneal) INDICATIONS: NEOPLASM OF LEFT KIDNEY TECHNIQUE: Real-time scanning was performed of the retroperitoneal organs, with image documentation. COMPARISON: CT Chest 12/10/2023. FINDINGS: Kidneys: Kidneys are normal in size. Right kidney measures 13.2 cm long; left kidney measures 16.6 cm long. Right renal cortical thickness is 1.3 cm; left renal cortical thickness is 1.2 cm. No daniel d masses, hydronephrosis, or nephrolithiasis. Multiple bilateral simple renal cysts. Largest in the right kidney in the superior mid pole measuring 5.2 x 5.1 x 4.2 cm. The largest cyst in the left kidn ey measures 5.8 x 4.3 x 5.8 cm. Additional cystic cluster measuring up to 9.4 cm. Bladder: Pre-void bladder volume is 72.8 mL. Post-void residual is 5.8 mL. Pre-void images demonst rate no intraluminal masses or stones. On pre-void images, bilateral ureteral jets are not visualize d with color Doppler interrogation. (Of note, ureteral jets may not be detectable in up to 25% of ca ses due to insufficient differences in specific gravity between ureteral and bladder urine). Miscellaneous: No free abdominal fluid. IMPRESSION: Bilateral renal simple cysts. Prevoid volume of 72.8 cc and postvoid residual volume of 5.8 cc. Bilateral ureteral jets not visuali zed. Reviewed by: Phyllis Goodman MD, PhD on 03/17/2024 12:17 AM PDT Approved by: Phyllis Goodman MD, PhD on 03/17/2024 12:17 AM PDT Station ID: [id number]
== END 2024-03-14 12:40 | disposition home or self-care (01) ==
LOC: DI 12:39
PROVIDERS: ATTEND Registered Nurse
DX: N28.1 Cyst of kidney, acquired (principal)